=== PATIENT | male | born 1980 | race Caucasian/White ===

== ENCOUNTER 2021-11-26 10:03 | Emergency (ER) | payer OTHER, SELFPAY ==
--- NOTE | ~2021-11-26 | CT_ITS ---
EXAMINATION: CT abdomen pelvis wo con DATE: 11/26/2021 11:00 INDICATION: Left flank pain TECHNIQUE: Computed tomography (CT) of the abdomen and pelvis was performed without intravenous contr ast. The dose-length product (DLP) was 402.85 mGy-cm. Automated exposure control and iterative recons truction technique were employed. COMPARISON: None FINDINGS: The lung bases are clear. The heart size is normal. The liver, spleen, pancreas, gallbladde r, and adrenal glands are normal. The right kidney is unremarkable. There is a 5 mm stone at the left ureterovesicular junction which causes mild hydroureteronephrosis. No pathologically enlarged abdomi nal or pelvic lymph nodes are identified. There is no free intraperitoneal gas or evidence of bowel o bstruction. IMPRESSION: 1. 5 mm stone of the left ureterovesicular junction causing mild hydroureteronephrosis. Reviewed, dictated and finalized at location A. IMPRESSION: 1. 5 mm stone of the left ureterovesicular junction causing mild hydroureterone phrosis.
[2021-11-26 10:15] VITALS: BP 177/107; PULSE 85; RESP 16; TEMP 36.3; O2SAT 99
[2021-11-26 10:31] VITALS: BP 152/88; PULSE 75
--- NOTE | 2021-11-26 10:34 | ED.ABDPAIN ---
HPI - Abdominal Pain General Chief Complaint: Urogenital-Male Stated Complaint: Pain in left side . Time Seen by Provider: 11/26/21 10:30 Source: patient and RN notes reviewed Mode of arrival: ambulatory Limitations: no limitations History of Present Illness MD elicited complaint: flank pain Pertinent past history: kidney stones Onset (ago): hour(s) (2) Pain Consistency: constant Location: L flank Severity: severe Quality: stabbing and sharp Radiation: L flank Migration to: no migration Exacerbating factors: nothing Relieving factors: nothing Associated symptoms: nausea Related Data Allergies Allergy/AdvReac Type Severity Reaction Status Date / Time No Known Allergies Allergy Verified 11/26/21 10:28 Review of Systems Review of Systems: All systems reviewed & are unremarkable except as noted in HPI and below Constitutional: Constitutional: Denies chills and Denies fever(s) PMFSH Past Medical History Medical History (Updated 11/26/21 @ 11:37 by Niko Bruce MD) No active medical problems Surgical History Surgical History (Updated 11/26/21 @ 10:41 by Niko Bruce MD) No pertinent past surgical history Social History Social History (Updated 11/26/21 @ 10:42 by Niko Bruce MD) Smoking status: Current every day smoker Tobacco type: cigarettes Exam Const: General: no acute distress, alert and ill appearing acutely Nutritional Appearance: well nourished and thin Orientation/consciousness: patient oriented x3 Limitations: no limitations HENMT: Head: normal to inspection Ears: external ears normal General nose exam: Normal external nose present Face and sinus: normal facial exam Mouth: Yes moist mucous membranes Eyes: Conjunctivae: conjunctivae normal Pupils: Equal, round and reactive pupils present EOM: EOMs intact bilaterally Neck: Neck: normal visual inspection Resp: Effort & Inspection: normal respiratory effort Auscultation: clear to auscultation bilaterally Cardio: Rate: regular rate Rhythm: regular rhythm GI: GI Palp: Yes Soft to palpation, Yes Tenderness to palpation present (GI) (LUQ) and No Guarding due to palpation present (GI) Auscultation: normal bowel sounds Back/Spine/Pelvis: Back: no CVA tenderness ( moderate on the left) Cervical Spine: cervical ROM normal Thoracic/Lumbar Spine: thoraco-lumbar ROM normal Skin: General skin exam: normal color Rashes: no rashes Neuro: General: patient oriented x3, moves all extremities, no focal motor deficits and CN's II-XI intact bilaterally Speech: normal speech Gait exam (Neuro): Normal gait present Extrem: General: normal to inspection Psych: Mental Status: mental status grossly normal Affect: normal affect Attitude: cooperative Course Course Emergency Course: Patient sleeping after Toradol his pain is significantly improved. He is advised to strain all urine take the stone into his primary care physician follow up with his primary care physician 5-7 days to be sure stone passes. Vital Signs Vital signs: Vital Signs Temperature 36.3 C L 11/26/21 10:15 Pulse Rate 85 11/26/21 10:15 Respiratory Rate 16 11/26/21 10:15 Blood Pressure 177/107 H 11/26/21 10:15 Pulse Oximetry 99 11/26/21 10:15 Oxygen Delivery Room Air 11/26/21 10:15 Temperature 36.6 C 11/26/21 11:41 Pulse Rate 77 11/26/21 11:41 Respiratory Rate 16 11/26/21 11:41 Blood Pressure 151/92 H 11/26/21 11:41 Pulse Oximetry 98 11/26/21 11:41 Oxygen Delivery Room Air 11/26/21 11:41 MDM - Abdominal Pain Differential Diagnosis Differential diagnosis: Likely calculus of kidney Lab Data Attestation: I reviewed the patient's lab results. Result diagrams: 11/26/21 10:50 11/26/21 10:50 Labs: Lab Results 11/26/21 11/26/21 11/26/21 Range/Units 10:50 10:50 10:50 WBC 6.7 (4.8-10.8) K/mm3 RBC 4.47 L (4.70-6.10) M/mm3 Hgb 13.9 L (14.0-18.0) g/dL Hct 42.6 (40.0-54.0
[2021-11-26] MEDS: KETOROLAC (*BKC) 60 MG/2 ML VIAL IM (10:38)
--- NOTE | 2021-11-26 10:38 | PC.NURSE ---
erp at bedside for initial assessment.
[2021-11-26 10:54] LABS: Basophils Absolute Auto 0.05 K/mm3 (0.00-0.10); Basophils Percent Auto 0.7 % (0.0-1.0); Eosinophils Absolute Auto 0.07 K/mm3 (0.02-0.50); Hematocrit 42.6 % (40.0-54.0); Hemoglobin 13.9 g/dL (14.0-18.0); Immature Granulocyte Absolute 0.01 K/mm3 (0.00-0.00); Immature Granulocyte Percent A 0.1 % (0.0-0.0); Lymphocytes Percent Auto 41.6 % (18.0-42.0); Mean Corpuscular HGB Conc 32.6 g/dL (32.0-36.0); Mean Corpuscular Hemoglobin 31.1 pg (27.0-31.0); Mean Corpuscular Volume 95.3 fL (78.0-102.0); Mean Platelet Volume 10.7 fl (8.7-11.0); Monocytes Absolute Auto 0.78 K/mm3 (0.10-0.90); Monocytes Percent Auto 11.6 % (2.0-11.0); Platelet Count Result 298 K/mm3 (150-420); Red Blood Count 4.47 M/mm3 (4.70-6.10); White Blood Count 6.7 K/mm3 (4.8-10.8)
[2021-11-26 10:55] LABS: Add Urine Microscopic? YES; Appearance Urine Clear (Clear); Bilirubin Urine Negative (Negative); Blood Urine 3+ (Negative); Color Urine Yellow (Yellow); Glucose Urine UA Negative (Negative); Ketones Urine Negative (Negative); Leukocyte Esterase Ur Trace LEU/UL (Negative); Nitrate Urine Negative (Negative); Protein Urine Trace (Negative); Specific Grav Ur >= 1.030 (1.010-1.020)
[2021-11-26 11:03] LABS: Bacteria Urine Trace /hpf; RBC Urine >75 /hpf (0-2); Squamous Epithelial Cell Urine Rare /hpf (Few); WBC Urine 0-3 /hpf (0-3)
--- NOTE | 2021-11-26 11:10 | PC.NURSE ---
patient back in room from ct. patient reconnected to monitor.
[2021-11-26 11:12] LABS: Alanine Aminotransferase 15 U/L (16-63); Albumin Level 4.2 g/dL (3.4-5.0); Alkaline Phosphatase 106 U/L (46-116); Anion Gap 8 mmol/L (8-16); Aspartate Amino Transferase 11 U/L (15-37); Bilirubin,Total 0.5 mg/dL (0.00-1.00); Blood Urea Nitrogen 16 mg/dL (7-18); Calcium 9.3 mg/dL (8.5-10.1); Carbon Dioxide 28 mmol/L (21-32); Chloride 104 mmol/L (98-108); Estimated Glomerular Filt Rate > 60; Glucose 99 mg/dL (70-99); Lipase 123 U/L (73-393); Osmolality Calculated 291 mOsm/kg (285-295); Sodium 140 mmol/L (136-145); Total Protein 7.9 g/dL (6.4-8.2)
--- NOTE | 2021-11-26 11:27 | PC.NURSE ---
rn went in to check on patients pain level patient is sleeping and resting comfortably at this time.
[2021-11-26 11:41] VITALS: BP 151/92; PULSE 77; RESP 16; TEMP 36.6; O2SAT 98
== END 2021-11-26 11:44 | disposition home or self-care (01) ==
PROVIDERS: Emergency Provider Emergency Medicine
DX: N20.1 Calculus of ureter (principal)
CPT/HCPCS: 36415; 74176; 80053; 81001; 83690; 85025; 96372; 99284; J1885

== ENCOUNTER 2022-07-15 10:16 | Emergency (ER) | payer OTHER, SELFPAY ==
[2022-07-15 10:20] VITALS: BP 174/97; PULSE 97; RESP 16; TEMP 37.1; O2SAT 98
--- NOTE | 2022-07-15 10:36 | ECG_ITS ---
Measurements Intervals [place] Rate: 82 P: 68 AL: 156 QRS: 53 QRSD: 86 T: 76 QT: 352 QTc: 413 Interpretive Statements SINUS RHYTHM VOLTAGE CRITERIA FOR LVH [MEETS CRITERIA IN ONE OF: R(aVL), S(V1), R(V5), R(V5/V6)+S(V1)] NO PREVIOUS ECG AVAILABLE FOR COMPARISON Electronically Signed On 07-15-2022 18:42:53 SYSTEMS TESTER by Kristina Elmore M.D.
--- NOTE | 2022-07-15 10:36 | ED.GENADULT ---
HPI - General Adult General Chief complaint: Unspecified Stated complaint: High BPD 172/102; high blood sugar History of Present Illness HPI narrative: Cruz is a previously healthy 41M that presented to the ED with concerns of an elevated BP today. It was 170's/90's earlier and he was a bit dizzy. There is no CP, dyspnea or syncope. He does smoke. Related Data Allergies Allergy/AdvReac Type Severity Reaction Status Date / Time No Known Allergies Allergy Verified 07/15/22 10:28 Review of Systems Review of Systems: All systems reviewed & are unremarkable except as noted in HPI and below PMFSH Past Medical History Medical History No active medical problems Surgical History Surgical History No pertinent past surgical history Social History Social History Smoking status: Current every day smoker Tobacco type: cigarettes Exam Const: General: cooperative, healthy appearing and comfortable Nutritional Appearance: average body habitus and well nourished HENMT: Head: normal to inspection Eyes: General: appearance normal, both eyes and all related structures Neck: Neck: normal visual inspection Chest: Chest palpation & inspection: normal inspection of the chest Resp: Effort & Inspection: normal respiratory effort and able to speak in complete sentences Cardio: Jugular venous distension: no JVD Rate: regular rate Rhythm: regular rhythm GI: Inspection: normal to inspection Back/Spine/Pelvis: Back: no CVA tenderness Skin: General skin exam: normal color and no rashes or lesions noted Neuro: General: oriented to person, oriented to place and oriented to time Extrem: General: normal to inspection Psych: Appearance: grossly normal Course Course Emergency Course: ordered amlodipine, labs and EKG EKG showed NSR with a rate of 82, normal axis and no ST elevation or depression Vital Signs Vital signs: Vital Signs Temperature 98.7 F 07/15/22 10:20 Pulse Rate 97 07/15/22 10:20 Respiratory Rate 16 07/15/22 10:20 Blood Pressure 174/97 H 07/15/22 10:20 Pulse Oximetry 98 07/15/22 10:20 Oxygen Delivery Room Air 07/15/22 10:20 Temperature 98.7 F 07/15/22 10:20 Pulse Rate 97 07/15/22 10:20 Respiratory Rate 16 07/15/22 10:20 Blood Pressure 174/97 H 07/15/22 10:20 Pulse Oximetry 98 07/15/22 10:20 Oxygen Delivery Room Air 07/15/22 10:20 Medical Decision Making Vital Signs Vital Signs: Vital Signs Temperature 98.7 F 07/15/22 10:20 Pulse Rate 97 07/15/22 10:20 Respiratory Rate 16 07/15/22 10:20 Blood Pressure 174/97 H 07/15/22 10:20 Pulse Oximetry 98 07/15/22 10:20 Oxygen Delivery Room Air 07/15/22 10:20 Temperature 98.7 F 07/15/22 10:20 Pulse Rate 97 07/15/22 10:20 Respiratory Rate 16 07/15/22 10:20 Blood Pressure 174/97 H 07/15/22 10:20 Pulse Oximetry 98 07/15/22 10:20 Oxygen Delivery Room Air 07/15/22 10:20 Lab Data 07/15/22 10:50 Labs: Lab Results 07/15/22 Range/Units 10:50 Sodium 136 (136-145) mmol/L Potassium 4.1 (3.5-5.1) mmol/L Chloride 99 (98-108) mmol/L Carbon Dioxide 30 (21-32) mmol/L Anion Gap 7 L (8-16) mmol/L BUN 21 H (7-18) mg/dL Creatinine 1.07 (0.70-1.30) mg/dL Estim Creat Clear Calc 84 ml/min Estimated GFR > 60 (59 - ) Glucose 113 H (70-99) mg/dL Calculated Osmolality 286 (285-295) mOsm/kg Calcium 8.7 (8.5-10.1) mg/dL Troponin I 6.2 (0.00-60.4) ng/L Discharge Plan Discharge Clinical Impression: Hypertension Patient Disposition: Home, Self-Care Condition: Stable Instructions: Chronic Hypertension (ED) Prescriptions: New lisinopril-hydrochlorothiazide 10-12.5 mg tablet 1 tablet PO DAILY Qty: 10 0RF Follow-up/Referrals: UNKNOWN
[2022-07-15 11:14] LABS: Anion Gap 7 mmol/L (8-16); Blood Urea Nitrogen 21 mg/dL (7-18); Calcium 8.7 mg/dL (8.5-10.1); Carbon Dioxide 30 mmol/L (21-32); Chloride 99 mmol/L (98-108); Estimated CRCL calculation 84 ml/min; Estimated Glomerular Filt Rate > 60; Glucose 113 mg/dL (70-99); Osmolality Calculated 286 mOsm/kg (285-295); Potassium 4.1 mmol/L (3.5-5.1); Sodium 136 mmol/L (136-145); Troponin I 6.2 ng/L (0.00-60.4)
[2022-07-15 11:37] VITALS: BP 160/100; PULSE 88; RESP 16; O2SAT 98
[2022-07-15 11:41] VITALS: TEMP 36.7
== END 2022-07-15 11:42 | disposition home or self-care (01) ==
PROVIDERS: Emergency Provider Family Medicine
DX: I10 Essential (primary) hypertension (principal); F17.210 Nicotine dependence, cigarettes, uncomplicated
CPT/HCPCS: 36415; 80048; 84484; 93005; 99284